=== PATIENT | male | born 1995 | race Caucasian/White ===

== ENCOUNTER 2024-12-29 14:39 | Emergency (ER) | payer SELFPAY ==
[2024-12-29 15:05] VITALS: BP 154/110
--- NOTE | 2024-12-29 16:32 | ED.GENMED ---
History of Present Illness
General
Chief Complaint: Eye Problems
Source: patient
Exam Limitations: none
Time Seen by Provider: 12/29/24 16:12
Nursing documentation reviewed up to this point in time: agreed with
History of Present Illness
History of Present Illness:
29-year-old male presents emergency room complaining of blurry vision in left eye that occurred while pulling on a skid. He maintains having some blurry vision and pain behind his left eye.
Past History
Past History
ED Past Medical History: Asthma and Other (Eczema)
ED Past Surgical History: None
Social History
Tobacco: Non-smoker
Alcohol: None
Drug: None
Employment: Employed
Review of Systems
Review of Systems
Allergies reviewed?: Yes
All Other Systems: Not applicable
Constitutional: Reports no symptoms
EENT: Reports other (Blurry vision)
Respiratory: Reports no symptoms
Cardiac: Reports no symptoms
ABD/GI: Reports no symptoms
: Reports no symptoms
Musculoskeletal: Reports no symptoms
Skin: Reports no symptoms
Neurological: Reports headache
Endocrine: Reports no symptoms
Hematologic/Lymphatic: Reports no symptoms
Psychiatric: Reports no symptoms
Phy Exam
Physical Exam
Physical Exam:
Physical Exam
General: no apparent distress, not acutely ill
Neck: supple. no meningeal signs. normal posterior pharynx
Heart: s1/s2 regular rate and rhythm, no murmur. equal radial
pulses.
HEENT: Pupils equal round reactive to light, EOMI
Lungs: no acute respiratory distress. clear bilaterally
Abdomen: normal bowel sounds. not tender. no CVAT
Neuro: alert and oriented. no focal neurological deficits cranial nerves II through XII intact
Skin: no rash
Psychiatric: well kept. interactive and cooperative
Extremities: no edema. no calf tenderness. negative homans. good distal pulses
Course
Orders/Labs/Results
Orders:
Orders
12/29/24 16:29
CT Head Angio W/wo Iv Contrast Urgent
Comment:
Reason For Exam: LOMAX behind left eye, blurry vision while lifting ob
12/29/24 16:31
IV Insert/Care/Rem.- Treatment PRN
Visual Acuity- Treatment ONCE
12/29/24 16:52
Complete Blood Count/With Diff Urgent
Comprehensive Metabolic Panel Urgent
12/29/24 20:24
Amoxicillin [Amoxil] 500 mg PO NOW STA
Abnormal Lab Results
12/29/24
16:52
WBC 12.8 H 10^3/uL
(4.8-10.8)
Abs Immat Gran (auto) 0.1 H 10^3/uL
(0-0.05)
Absolute Neuts (auto) 9.0 H 10^3/uL
(1.4-6.5)
Absolute Monos (auto) 0.7 H 10^3/uL
(0.1-0.6)
ALT 56 H U/L
(0-50)
12/29/24 16:52
12/29/24 16:52
Vital Signs
Initial and Last Documented VS:
Initial Vital Signs
Temp Pulse Resp BP Pulse Ox
98.5 F 70 18 154/110 98
12/29/24 15:05 12/29/24 15:05 12/29/24 15:05 12/29/24 15:05 12/29/24 15:05
Last Documented Vital Signs
Temp Pulse Resp BP Pulse Ox
98.5 F 75 18 148/88 99
12/29/24 15:05 12/29/24 18:00 12/29/24 18:00 12/29/24 18:00 12/29/24 18:00
MDM/Problems Addressed
Differential Diagnosis Includes:
Intracranial hemorrhage, sinusitis
MDM/Problems Addressed:
29-year-old male with left-sided. Suspect this is a cause of his symptoms. Will discharge to follow-up with ophthalmology and primary care. Treat with amoxicillin.
*Radiology
Radiology exam reviewed: radiology read reviewed (CT head angiography shows left maxillary and frontal sinusitis)
*Pulse Oximetry
Patient hypoxic: no
*Critical Care Note
Total Time (30-74mins, 75-104mins- exclusive of procedures): Not Applicable
Patient Management
Social determinants of health affecting care: Living situation
Discussion with other providers: Assembler Crimper ([place] text sent ophthalmology for follow-up)
Escalation/DeEscalation of care consider admission/obs:
Admit not indicated
ED Attending Note
-
Portions of this chart may have been created with voice recognition software.� Occasional wrong word or��sound alike� substitutions may have occurred due to the inherent limitations of voice recognition software.
Discharge Plan
Departure
Patient Disposition: Home (Routine Discharge)
Date of Disposition: 12/29/24
Time of Disposition: 20:24
Patient with high blood pressure during this ER visit?: Yes
Condition: Good
Discharge Problem:
Acute maxillary sinusitis, Blurred vision, left eye
Instructions: Sinusitis in adults, BLOOD PRESSURE
Prescriptions:
New
amoxicillin 500 mg capsule
500 mg PO TID Qty: 21 0RF
Referrals:
Tad Hurtado DO [Family Provider] - Call in 1-3 days for appt
Jaye Bishop MD [Active] - Call in 1-3 days for appt
Interventions
Interventions:
*Risk Screen - Suicide Last Done: 12/29/24 15:05
*General Assessment Last Done: 12/29/24 15:05
*Neglect/Abuse Screening Last Done: 12/29/24 15:05
*ED COVID-19 Vaccine History Last Done: 12/29/24 16:36
Discharge Date and Time
Print Language: NIGERIEN
[2024-12-29 17:07] LABS: % Basophils 0.6 % (0-2); % Eosinophils 2.8 % (0-6); % Immature Granulocytes 0.4 % (0-0.5); % Lymphocytes 20.9 % (20.5-51.1); % Monocytes 5.1 % (1.7-9.3); % Neutrophils 70.2 % (42.2-75.2); Absolute Basophils 0.1 10^3/uL (0-0.2); Absolute Eosinophils 0.4 10^3/uL (0-0.7); Absolute Immature Granulocytes 0.1 10^3/uL (0-0.05); Absolute Lymphocytes 2.7 10^3/uL (1.2-3.4); Absolute Monocytes 0.7 10^3/uL (0.1-0.6); Hemoglobin 16.8 g/dL (13.0-18.0); Mean Corp Hgb Conc. 35.7 g/dL (33.0-37.0); Mean Corpuscular Hgb 30.2 pg (27.0-31.0); Mean Corpuscular Volume 84.4 fL (80.0-94.0); Mean Platelet Volume 9.6 fL (7.4-10.4); Nucleated Red Blood Cells % 0 % (-); Platelet Count 328 10^3/uL (130-400); Red Blood Cell Count 5.57 10^6/uL (4.70-6.10); Red Cell Dist. Width 11.6 % (11.5-14.5); White Blood Cell Count 12.8 10^3/uL (4.8-10.8)
[2024-12-29 17:16] LABS: ALT (SGPT) 56 U/L (0-50); AST (SGOT) 31 U/L (17-59); Albumin 4.9 g/dl (3.5-5.0); Alkaline Phosphatase 109 U/L (38-126); Blood Urea Nitrogen 14 mg/dl (9-20); Calcium 9.7 mg/dl (8.4-10.2); Carbon Dioxide 26 mmol/L (22-30); Chloride 104 mmol/L (98-107); Glucose 93 mg/dl (70-99); Potassium 4.1 mmol/L (3.5-5.1); Sodium 139 mmol/L (135-145); Total Bilirubin 0.7 mg/dl (0.2-1.3); Total Protein 7.9 g/dl (6.3-8.2); eGFR > 60.00
[2024-12-29 18:00] VITALS: BP 148/88
[2024-12-29] MEDS: AMOXIL 500 MG PO (20:43)
== END 2024-12-29 20:52 | disposition home or self-care (01) ==
LOC: EMR 14:39
PROVIDERS: EMERGENCY PHYSICIAN Emergency Medicine; FAMILY PHYSICIAN Internal Medicine
DX: H53.8 Other visual disturbances (principal); J01.00 Acute maxillary sinusitis, unspecified; R51.9 Headache, unspecified; R03.0 Elevated blood-pressure reading, without diagnosis of hypertension; J45.909 Unspecified asthma, uncomplicated; L30.9 Dermatitis, unspecified; Z91.010 Allergy to peanuts; Z91.013 Allergy to seafood
CPT/HCPCS: 99284; 70496; 80053; 85025; Q9967